=== PATIENT | male | born 1955 | race Caucasian/White ===

== ENCOUNTER 2021-01-04 06:29 | Observation (INO) ==
[2021-01-04] MEDS ORDERED: FUROSEMIDE 100 MG/10 ML VIAL IV STA (06:50)
[2021-01-04 06:56] LABS: Basophils % 0.3 % (0.0-0.8); Eosinophils # 0.2 10*3/uL (0.0-0.87); Eosinophils % 1.5 % (0.00-10.9); Hemoglobin 15.9 GM/DL (14.0-18.0); Immature Granulocytes % 0.4 %; Immature Granulocytes Absolute 0.04 #; Lymphocytes # 0.9 10*3/uL (1.4-4.0); Lymphocytes % 8.6 % (21.2-54.2); Mean Corpuscular HGB Conc 32.4 GM/DL (32-36); Mean Corpuscular Volume 88.8 FL (87-102); Mean Platelet Volume 11.2 FL (9.6-12.0); Monocytes % 7.3 % (1.7-12.7); Neutrophils % 81.9 % (38.7-73.9); Platelet Count 191 T/CUMM (130-400); Red Blood Count 5.52 MC/CUMM (3.8-5.5); Red Cell Distribution Width 14.7 % (9.3-17.3)
[2021-01-04 07:05] LABS: INR 1.1; PT Patient Result 11.9 SECS (10.5-12.0); Partial Thromboplastin Time 23.6 SECS (23.9-33.8)
[2021-01-04 07:15] LABS: Albumin 3.4 G/DL (3.4-5.0); Bilirubin,Total 0.5 MG/DL (0.2-1.0); Calcium 8.6 MG/DL (8.5-10.1); Osmolality,Calculated 285.4 MOS/KG (273-304); Potassium 2.9 MMOL/L (3.5-5.1); Total Protein 7.4 G/DL (6.4-8.2)
[2021-01-04 07:20] LABS: ABG Base Excess -1.6 MMOL/L (-2.5-2.5); ABG HCO3 22.9 MMOL/L (20-26); ABG Oxygen Saturation 92.1 % (95-100); ABG PCO2 37.5 MM HG (35-48); ABG PH 7.392 (7.35-7.45); ABG PO2 64.9 MM HG (80-95); ABG TCO2 19.3 MMOL/L (23-27)
[2021-01-04 07:21] LABS: Theophylline < 2.0 UG/ML (10-20)
[2021-01-04 07:46] LABS: Amorphous Crystals,Urine Occasional /HPF (Few); Bilirubin,Urine Negative (Negative); Blood, Urine Negative (Negative); Glucose,Urine (UA) >=500 mg/dL (Negative); Ketones,Urine Negative (Negative); Mucus,Urine Occasional /LPF (Occasional); Nitrite,Urine Negative (Negative); Protein,Urine >=500 MG/DL; RBC,Urine 1 /HPF (0-4); Sperm,Urine Occasional /HPF (Negative); Urine Appearance CLEAR (Clear); Urine Color Yellow (Yellow); Urine Specific Gravity 1.012 (1.001-1.035); Urine Urobilinogen < 2.0 EU/DL (0.2-1.0)
[2021-01-04 07:49] LABS: Barbiturates Screen,Urine Negative (Negative); Benzodiazepines Screen,Urine Negative (Negative); Cannabinoid Screen,Urine Negative (Negative); Opiate Screen,Urine Negative (Negative); Phencyclidine Screen,Urine Negative (Negative)
[2021-01-04] MEDS ORDERED: DEXTROSE 50% 25 GM/50 ML VIAL IV PRN ×2 (09:08→12:44)
[2021-01-04] MEDS ORDERED: GLUCAGON 1 MG VIAL IM PRN ×2 (09:08→12:44)
[2021-01-04] MEDS ORDERED: ENOXAPARIN 40 MG/0.4 ML SYRINGE SUBCUT SCH (12:30)
[2021-01-04] MEDS: POTASSIUM CHLORIDE 20 MEQ TABLET PO SCH ×2 (13:52→20:45)
[2021-01-04 15:31] LABS: CKMB % 3.2 %; High Sensitive Troponin I* 77.1 ng/L (0-78)
[2021-01-04] MEDS ORDERED: ALBUTEROL 0.63 MG/3 ML NEB RESP TX PRN (16:13)
[2021-01-04] MEDS: INSULIN NPH/REGULAR 70/30 100 UNIT/ML SUBCUT SCH (16:33)
[2021-01-04] MEDS: cefTRIAXone 1,000 MG in SODIUM CHLORIDE 0.9% 100 ML IV SCH (16:34)
[2021-01-04] MEDS: hydrALAZINE 25 MG TABLET PO SCH (20:45)
[2021-01-04] MEDS: diphenhydrAMINE CAP 50 MG CAPSULE PO PRN (20:45)
[2021-01-04] MEDS: DOXYCYCLINE HYCLATE 100 MG CAPSULE PO SCH (20:45)
[2021-01-04] MEDS: carvediloL 12.5 MG TABLET PO SCH (20:45)
[2021-01-05 05:35] LABS: Basophils % 0.6 % (0.0-0.8); Eosinophils # 0.2 10*3/uL (0.0-0.87); Eosinophils % 2.3 % (0.00-10.9); Hematocrit 41.6 VOL% (42.0-52.0); Immature Granulocytes % 0.4 %; Immature Granulocytes Absolute 0.03 #; Lymphocytes # 1.5 10*3/uL (1.4-4.0); Lymphocytes % 20.1 % (21.2-54.2); Mean Corpuscular HGB Conc 33.4 GM/DL (32-36); Mean Corpuscular Volume 88.3 FL (87-102); Mean Platelet Volume 11.6 FL (9.6-12.0); Monocytes % 13.4 % (1.7-12.7); Neutrophils % 63.2 % (38.7-73.9); Platelet Count 175 T/CUMM (130-400); Red Blood Count 4.71 MC/CUMM (3.8-5.5)
[2021-01-05 05:36] LABS: Calcium 8.5 MG/DL (8.5-10.1); Potassium 3.4 MMOL/L (3.5-5.1)
[2021-01-05 05:37] LABS: Hemoglobin 13.9 GM/DL (14.0-18.0); White Blood Count 7.3 T/CUMM (4-12)
[2021-01-05 05:41] LABS: Risk Ratio 3.47; VLDL CHOLESTEROL 23.8 MG/DL
[2021-01-05] MEDS ORDERED: FUROSEMIDE 40 MG/4 ML VIAL IV SCH (08:00)
[2021-01-05] MEDS ORDERED: amLODIPine 10 MG TABLET PO SCH (09:00)
[2021-01-05] MEDS ORDERED: ASPIRIN EC 81 MG TABLET PO SCH (09:00)
[2021-01-05] MEDS ORDERED: NON-FORMULARY MEDICATION (Cinnamon Bark [Cinnamon] 500 mg Capsule) PO SCH (09:00)
[2021-01-05] MEDS: POLYCARBOPHIL 625 MG TABLET PO SCH (09:57)
[2021-01-05] MEDS: POTASSIUM CHLORIDE 20 MEQ TABLET PO SCH ×2 (09:57→20:44)
[2021-01-05] MEDS: OMEGA 3 ACID ETHYL ESTERS 1 GM CAPSULE PO SCH (09:57)
[2021-01-05] MEDS: FERROUS SULFATE 325 MG TABLET PO SCH (09:57)
[2021-01-05] MEDS: DOXYCYCLINE HYCLATE 100 MG CAPSULE PO SCH ×2 (09:57→20:44)
[2021-01-05] MEDS: ROSUVASTATIN 20 MG TABLET PO SCH (09:57)
[2021-01-05] MEDS: hydrALAZINE 25 MG TABLET PO SCH ×2 (09:57→20:44)
[2021-01-05] MEDS: carvediloL 12.5 MG TABLET PO SCH ×2 (09:58→20:44)
[2021-01-05] MEDS: CLOPIDOGREL 75 MG TABLET PO SCH (09:58)
[2021-01-05] MEDS: FENOFIBRATE 145 MG TABLET PO SCH (09:58)
[2021-01-05] MEDS: RIVAROXABAN 15 MG TABLET PO SCH (09:58)
[2021-01-05] MEDS: INSULIN NPH/REGULAR 70/30 100 UNIT/ML SUBCUT SCH ×2 (10:14→17:02)
[2021-01-05] MEDS ORDERED: POTASSIUM CHLORIDE 20 MEQ TABLET PO ONE (11:06)
[2021-01-05] MEDS: ASCORBIC ACID 500 MG TABLET PO SCH ×2 (13:37→20:44)
[2021-01-05] MEDS: ISOSORBIDE MONONITRATE 30 MG TABLET PO SCH (13:38)
[2021-01-05 15:16] LABS: % Iron Saturation 21.7 % (18-50); Ferritin 125.3 ng/ml (26-388)
[2021-01-05 15:18] LABS: Folate 15.34 NG/ML (5.38-24.0)
[2021-01-05] MEDS: cefTRIAXone 1,000 MG in SODIUM CHLORIDE 0.9% 100 ML IV SCH (17:02)
[2021-01-05] MEDS: diphenhydrAMINE CAP 50 MG CAPSULE PO PRN (23:20)
[2021-01-06 06:05] LABS: Basophils # 0.1 10*3/uL (0.0-0.2); Basophils % 0.7 % (0.0-0.8); Eosinophils # 0.2 10*3/uL (0.0-0.87); Eosinophils % 3.1 % (0.00-10.9); Hematocrit 40.6 VOL% (42.0-52.0); Hemoglobin 13.4 GM/DL (14.0-18.0); Immature Granulocytes % 0.4 %; Immature Granulocytes Absolute 0.03 #; Lymphocytes # 1.6 10*3/uL (1.4-4.0); Lymphocytes % 24.4 % (21.2-54.2); Mean Corpuscular Volume 89.4 FL (87-102); Mean Platelet Volume 11.4 FL (9.6-12.0); Neutrophils % 58.4 % (38.7-73.9); Platelet Count 168 T/CUMM (130-400); Red Blood Count 4.54 MC/CUMM (3.8-5.5); Red Cell Distribution Width 15.1 % (9.3-17.3); White Blood Count 6.7 T/CUMM (4-12)
[2021-01-06 06:53] LABS: Osmolality,Calculated 292.8 MOS/KG (273-304); Potassium 4.1 MMOL/L (3.5-5.1)
[2021-01-06] MEDS: CLOPIDOGREL 75 MG TABLET PO SCH (08:38)
[2021-01-06] MEDS: FENOFIBRATE 145 MG TABLET PO SCH (08:38)
[2021-01-06] MEDS: OMEGA 3 ACID ETHYL ESTERS 1 GM CAPSULE PO SCH (08:38)
[2021-01-06] MEDS: ASCORBIC ACID 500 MG TABLET PO SCH (08:38)
[2021-01-06] MEDS: ISOSORBIDE MONONITRATE 30 MG TABLET PO SCH (08:38)
[2021-01-06] MEDS: RIVAROXABAN 15 MG TABLET PO SCH (08:38)
[2021-01-06] MEDS: FERROUS SULFATE 325 MG TABLET PO SCH (08:38)
[2021-01-06] MEDS: POTASSIUM CHLORIDE 20 MEQ TABLET PO SCH (08:38)
[2021-01-06] MEDS: POLYCARBOPHIL 625 MG TABLET PO SCH (08:38)
[2021-01-06] MEDS: DOXYCYCLINE HYCLATE 100 MG CAPSULE PO SCH (08:39)
[2021-01-06] MEDS: carvediloL 12.5 MG TABLET PO SCH (08:39)
[2021-01-06] MEDS: ROSUVASTATIN 20 MG TABLET PO SCH (08:39)
[2021-01-06] MEDS: INSULIN NPH/REGULAR 70/30 100 UNIT/ML SUBCUT SCH (08:40)
[2021-01-06] MEDS ORDERED: FUROSEMIDE 40 MG/4 ML VIAL IV SCH (09:00)
[2021-01-06] MEDS ORDERED: NON-FORMULARY MEDICATION (Cinnamon Bark [Cinnamon] 500 mg Capsule) PO SCH (09:00)
[2021-01-06] MEDS ORDERED: CHOLECALCIFEROL 1,000 UNIT TABLET PO SCH (09:00)
[2021-01-06] MEDS ORDERED: amLODIPine 5 MG TABLET PO SCH (09:00)
[2021-01-06 11:44] VITALS: BP 147/66
== END 2021-01-06 13:21 | disposition home or self-care (01) ==
LOC: EDUNIT# → EDBD → N.ED 06:29 → N.EDINP 06:29 → SUATTDRO 10:40 → N.EDINP 11:59 → N.TELEN 12:06
PROVIDERS: ADMIT Nurse Practitioner Family; ATTEND Internal Medicine